=== PATIENT | male | born 1960 | race Caucasian/White ===

== ENCOUNTER 2018-06-17 09:26 | Day surgery (SDC) | payer OTHER ==
[~2018-06-17 09:26] MED LIST: ACETAMINOPHEN 1,000 MG/100 ML BTL IV ONE; FAMOTIDINE 20MG TABLET PO ONE; METOCLOPRAMIDE 10 MG TABLET PO ONE; SCOPOLAMINE 1 PATCH TDSY TD ONE
[2018-06-17] MEDS ORDERED: ONDANSETRON HCL IV 4 MG/2 ML VIAL IVP ONE (09:27)
[2018-06-17] MEDS ORDERED: BUPIVACAINE 0.25% W/EPI MPF 30ML VIAL IVP ONE (09:27)
[2018-06-17] MEDS ORDERED: TRAMADOL HCL 50 MG TABLET PO ONE (09:27)
[2018-06-17] MEDS ORDERED: LIDOCAINE 2% MDV (20MG/ML) 20ML VIAL IV ONE (09:27)
[2018-06-17] MEDS ORDERED: MIDAZOLAM HCL 2MG/2ML VIAL IV ONE (09:27)
[2018-06-17] MEDS ORDERED: PROPOFOL 10 MG/ML VIAL IV ONE (09:27)
[2018-06-17] MEDS ORDERED: FENTANYL PF 100MCG/2ML VIAL IV ONE (09:27)
[2018-06-17] MEDS ORDERED: DEXAMETHASONE 4 MG/ML 1ML VIAL IVP ONE (09:27)
[2018-06-17] MEDS ORDERED: DIPHENHYDRAMINE HCL 50 MG/ML VIAL IVP ONE (09:27)
--- NOTE | 2018-06-18 15:10 | Operative Note ---
DATE OF SURGERY: 06/17/2018 Surgeon: Moe Garcia DO PREOPERATIVE DIAGNOSES: 1. Torn medial meniscus of the left knee. 2. Chondromalacia of the left knee. POSTOPERATIVE DIAGNOSES: 1. Torn medial meniscus of the left knee. 2. Synovitis of the left knee. 2. 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 OPERATION: 1. Arthroscopic partial medial meniscectomy, left knee. 2. Arthroscopic partial synovectomy, left knee (2 compartments). 3. Arthroscopic chondroplasty of the medial femoral condyle and trochlea, left knee. DESCRIPTION OF PROCEDURE: This 58-year-old male was taken to the operating room and placed in the supine position on the operating room table. The left lower extremity was elevated. It was exsanguinated and the tourniquet inflated to 300 mmHg. Arthroscopic knee ortega applied. Left knee prepped with Hibiclens and draped in the usual sterile fashion. An inferolateral portal was established for the 4 mm arthroscope and initial evaluation of the joint demonstrated normal appearance of the suprapatellar pouch but significant synovitis was present anteriorly and a medial mid patella plica was present. This was resected with the rotating shaver. The anterior medial compartment also demonstrated synovitis which was resected. The patella demonstrated mild grade 2 changes of the articular cartilage but it was not unstable and not further disturbed. However, the trochlea demonstrated grade 2 chondromalacia which was debrided with a rotating shaver. The medial femoral condyle was examined and some large chunks of loose articular cartilage was present on the medial side. These were resected with a rotating shaver. Grade 2-3 changes were present there. The patient also demonstrated a tear of the posterior horn of the medial meniscus. This was resected with a rotating shaver to the apex which was approximately 4-5 mm from the meniscosynovial junction. It was smoothed and trimmed to a smooth contoured surface. It was re-probed and confirmed to be stable. The lateral compartment was entered and normal lateral meniscus and articular cartilage of the lateral compartment was present. The joint was copiously irrigated, suctioned, and the instruments were removed. The portals infiltrated with 0.25% Marcaine with epinephrine. Sterile dressings applied. Tourniquet and knee ortega released and the patient taken to the recovery room in satisfactory condition. GROSS PATHOLOGY: This patient demonstrated advanced degenerative disease of the trochlea with significant grade 2 changes and the medial femoral condyle but mild changes of the patella. A complex tear of the medial meniscus as described and synovitis also was present. CC: DO ELIZABETH Cartagena
== END 2018-06-17 13:13 | disposition home or self-care (01) ==
LOC: SUR 09:26
PROVIDERS: ATTEND Orthopaedic Surgery
DX: S83.232A Complex tear of medial meniscus, current injury, left knee, initial encounter (principal); M22.42 Chondromalacia patellae, left knee; M65.9 Synovitis and tenosynovitis, unspecified; G47.419 Narcolepsy without cataplexy
CPT/HCPCS: 29881; 29876; 01400; J2405; J3010; J1200